=== PATIENT | female | born 1940 | race American Indian/Alaskan Native ===

== ENCOUNTER 2022-01-24 19:05 | Emergency (ER) | payer MEDICARE ==
--- NOTE | 2022-01-24 19:30 | Emergency Department Report ---
ED Fall HPI - General Chief Complaint: Fall Stated Complaint: GROUND LEVEL FALL/PAIN Time Seen by Provider: 01/24/22 19:26 Source: patient Mode of arrival: Stretcher Limitations: No Limitations - History of Present Illness Initial Comments: Patient is an 81-year-old female that presents emergency room with complaints of right shoulder pain and abdominal pain after a fall. Patient states that she tripped over a ledge that was on the floor and she fell against the wall with her right shoulder and then fell against the heater that was on the floor and hit her abdomen. Patient states she was not any pain prior to the fall. Patient states the right shoulder pain is a 6 out of 10. Patient states the abdominal pain is a 6 out of 10. Patient denies loss of consciousness. Patient denies hitting her head. Patient states the abdominal pain is better with rest and worse with palpation. Patient states the shoulder pain is better with rest and worse with movement. Patient states she is able to move all extremities. Patient denies other injury. Patient denies chest pain. Patient denies syncopal episode. Patient denies loss of consciousness. Patient denies shortness of breath. Patient denies recent travel. Patient denies recent international travel. Patient denies exposure to the novel coronavirus. Patient denies sick contacts. Patient denies fever and chills. Patient denies cough. Patient denies diarrhea. Patient denies coming in contact with anybody with symptoms of the novel coronavirus. Patient brought in by EMS. Report received from EMS. EMS states the patient has a history of mild dementia. MD Complaint: fall -: Sudden - Related Data Allergies Allergy/AdvReac Type Severity Reaction Status Date / Time No Known Allergies Allergy Unverified 01/24/22 19:47 ED Review of Systems ROS: Stated complaint: GROUND LEVEL FALL/PAIN Other details as noted in HPI Constitutional: denies: chills, fever Eyes: denies: eye pain, eye discharge, vision change ENT: denies: ear pain, throat pain Respiratory: denies: cough, shortness of breath, wheezing Cardiovascular: denies: chest pain, palpitations Endocrine: no symptoms reported Gastrointestinal: abdominal pain. denies: nausea, diarrhea Genitourinary: denies: urgency, dysuria, discharge Musculoskeletal: as per HPI. denies: back pain, joint swelling, arthralgia Skin: denies: rash, lesions Neurological: denies: headache, weakness, paresthesias Psychiatric: denies: anxiety, depression Hematological/Lymphatic: denies: easy bleeding, easy bruising ED Past Medical Hx - Past Medical History Previous Medical History?: Yes Hx Hypertension: Yes Hx Dementia: Yes - Surgical History Past Surgical History?: No - Family History Family history: no significant - Social History Smoking Status: Never Smoker Substance Use Type: None ED Physical Exam - General Limitations: No Limitations General appearance: alert, in no apparent distress - Head Head exam: Present: atraumatic, normocephalic - Eye Eye exam: Present: normal appearance - ENT ENT exam: Present: mucous membranes moist - Neck Neck exam: Present: normal inspection - Respiratory Respiratory exam: Present: normal lung sounds bilaterally. Absent: respiratory distress - Cardiovascular Cardiovascular Exam: Present: regular rate, normal rhythm. Absent: systolic murmur, diastolic murmur, rubs, gallop - GI/Abdominal GI/Abdominal exam: Present: soft, tenderness, normal bowel sounds - Extremities Exam Extremities exam: Present: normal inspection - Back Exam Back exam: Present: normal inspection - Neurological Exam Neurological exam: Present: alert, oriented X3 - Psychiatric Psychiatric exam: Present: normal affect, normal mood - Skin Skin exam: Present: warm, dry, intact, normal color. Absent: rash ED Course Vital Signs 01/24/22 19:06 Temperature 98 F Pulse Rate 65 Respiratory 18 Rate Blood Pressure 160/90 O2 Sat by Pulse 97 Oximetry - Reevaluation(s) Reevaluation #1: Patient denies pain in the abdomen. Patient states she still having shoulder pain. I discussed all results and clinical findings with patient. I discussed plan of care with patient. Patient agrees with plan of care. Patient is stable for discharge. Patient will be discharged home. Patient given discharge instructions. Patient voiced understanding of discharge instructions. 01/24/22 23:10 ED Medical Decision Making - Lab Data Result diagrams: 01/24/22 20:42 01/24/22 20:42 - Radiology Data Radiology results: report reviewed RIGHT SHOULDER, 3 VIEWS INDICATION / CLINICAL INFORMATION: pain./ fall. COMPARISON: None available. FINDINGS: No acute fracture. No dislocation. Moderate degenerative changes are present in the AC joint and glenohumeral joint. Visualized thoracic right ribs are intact. IMPRESSION: No fracture or dislocation. Moderate degenerative change. CT abdomen pelvis w con INDICATION / CLINICAL INFORMATION: abd holbrook. fall. hit abd. TECHNIQUE: Axial CT images were obtained through the abdomen and pelvis after IV contrast. All CT scans at this location are performed using CT dose reduction for ALARA by means of automated exp osure control. COMPARISON: None available. FINDINGS: LOWER CHEST: 1.5 cm nodule in the lingula with popcorn calcification, likely reflecting calcified granuloma. Prominent calcified left hilar lymph node. Small bland appearing pericardial effusion, nonspecific. LIVER: Right hepatic cyst. GALLBLADDER/BILIARY TREE: Gallbladder is distended with cholelithiasis. No significant gallbladder wall thickening. The common bile duct is mildly dilated for age, measuring 1 cm in diameter. This gradually tapers to the ampulla without discrete obstructing stone or mass. PANCREAS: No significant abnormality SPLEEN: No significant abnormality ADRENALS: No significant abnormality RIGHT KIDNEY / URETER: No significant abnormality LEFT KIDNEY / URETER: Left renal cyst. No acute findings. No hydronephrosis. URINARY BLADDER: No significant abnormality REPRODUCTIVE ORGANS: Lobulated fibroid uterus. STOMACH / BOWEL: Small bowel is normal in caliber. Moderate colonic stool with scattered colonic diverticula. No evidence of acute GI inflammation or obstruction. The appendix is normal in caliber. LYMPH NODES: No significant adenopathy. VASCULATURE: No significant abnormality. OTHER: No free air, free fluid, or focal fluid collection is identified. SKELETAL SYSTEM: No acute osseous findings. IMPRESSION: 1. No acute traumatic abnormality of the abdomen or pelvis. 2. Gallbladder is distended with cholelithiasis. No evidence of cholecystitis by CT. Mild common bile duct dilatation for age. This tapers to the ampulla without discrete obstructing stone or mass. Recommend correlation with laboratory values to exclude distal biliary obstruction. 3. Small bland-appearing pericardial effusion. 4. Other incidental findings as above. - Medical Decision Making Patient is an 81-year-old female that presents emergency room for a fall. Patient complained of right shoulder pain and abdominal pain. Patient's not improved while in the ER. Patient had a shoulder x-ray that was negative for acute findings. Patient had a abdominal CT and it was negative for acute findings. The abdominal CT showed dilation of the common bile duct and the radiologist recommend checking the labs for signs of obstruction. Patient's chemistry and LFTs were completely normal. Patient does not have any more pain on palpation in the right upper quadrant. Patient had labs done which were esse ntially unremarkable. Patient does not require any further emergency medical service. Patient not require any further inpatient service. Patient discharged home. Patient will need to follow-up with primary care and a general surgeon for the gallbladder findings. I discussed all results and clinical findings with patient. I discussed plan of care with patient. Patient agrees with plan of care. Patient is stable for discharge. Patient will be discharged home. Patient given discharge inst ructions. Patient voiced understanding of discharge instructions. - Differential Diagnosis Fall, abdominal pain, shoulder pain, fracture, contusion, Critical care attestation.: If time is entered above; I have spent that time in minutes in the direct care of this critically ill patient, excluding procedure time. ED Disposition Clinical Impression: Shoulder pain Qualifiers: Chronicity: acute Laterality: right Qualified Code(s): M25.511 - Pain in right shoulder Abdominal pain Qualifiers: Abdominal location: generalized Qualified Code(s): R10.84 - Generalized abdominal pain Fall Qualifiers: Encounter type: initial encounter Qualified Code(s): W19.XXXA - Unspecified fa ll, initial encounter Abdominal wall contusion Qualifiers: Encounter type: initial encounter Qualified Code(s): S30.1XXA - Contusion of abdominal wall, initial encounter Shoulder contusion Qualifiers: Encounter type: initial encounter Laterality: right Qualified Code(s): S40.011A - Contusion of right shoulder, initial encounter Cholelithiasis Qualifiers: Cholelithiasis location: gallbladder Cholecystitis presence: without cholecystitis Biliary obstruction: without biliary obstruction Qualified Code(s) : K80.20 - Calculus of gallbladder without cholecystitis without obstruction Disposition: 01 HOME / SELF CARE / HOMELESS Is pt being admited?: No Does the pt Need Aspirin: No Condition: Stable Instructions: Shoulder Pain, Cholelithiasis, Musculoskeletal Pain, Contusion, Abdominal Pain, Adult, [id number] Additional Instructions: Patient to follow-up with primary care in 2 to 3 days. Patient to follow-up with general surgery in 2 to 3 days. Patient to rest. Patient to increase water. Patient to take Tylenol or ibuprofen as needed for pain.. Patient to return to the ER if condition worsens, changes or new symptoms arise. Referrals: MARIELENA KELLY MD [Primary Care Provider] - 2-3 Days SUMAN SANTO DO [Staff Physician] - 2-3 Days Time of Disposition: 23:15
--- NOTE | 2022-01-24 20:17 | XRay Report ---
RIGHT SHOULDER, 3 VIEWS INDICATION / CLINICAL INFORMATION: pain./ fall. COMPARISON: None available. FINDINGS: No acute fracture. No dislocation. Moderate degenerative changes are present in the AC joint and richa ohumeral joint. Visualized thoracic right ribs are intact. IMPRESSION: No fracture or dislocation. Moderate degenerative change. Signer Name: Kayla Hong MD Signed: 01/24/2022 8:13 PM Workstation Name: [id number]
[2022-01-24 21:22] LABS: Alanine Aminotransferase 18 units/L (7-56); Albumin 3.9 g/dL (3.9-5); Blood Urea Nitrogen 12 mg/dL (7-17); Calcium 9.6 mg/dL (8.4-10.2); Hemolysis Index 1
[2022-01-24 21:28] LABS: BUN/Creatinine Ratio 17
[2022-01-24 21:33] LABS: Hematocrit 38.6 % (30.3-42.9); Hemoglobin 12.9 gm/dl (10.1-14.3); Mean Corpuscular HGB Conc 33 % (30-34); Mean Corpuscular Volume 84 fl (79-97); Platelet Count 217 K/mm3 (140-440); Red Cell Distribution Width 14.4 % (13.2-15.2)
--- NOTE | 2022-01-24 22:55 | Cat Scan Report ---
CT abdomen pelvis w con INDICATION / CLINICAL INFORMATION: abd holbrook. fall. hit abd. TECHNIQUE: Axial CT images were obtained through the abdomen and pelvis after IV contrast. All CT sc ans at this location are performed using CT dose reduction for ALARA by means of automated exposure c ontrol. COMPARISON: None available. FINDINGS: LOWER CHEST: 1.5 cm nodule in the lingula with popcorn calcification, likely reflecting calcified gra nuloma. Prominent calcified left hilar lymph node. Small bland appearing pericardial effusion, nonspe cific. LIVER: Right hepatic cyst. GALLBLADDER/BILIARY TREE: Gallbladder is distended with cholelithiasis. No significant gallbladder wa ll thickening. The common bile duct is mildly dilated for age, measuring 1 cm in diameter. This gradu ally tapers to the ampulla without discrete obstructing stone or mass. PANCREAS: No significant abnormality SPLEEN: No significant abnormality ADRENALS: No significant abnormality RIGHT KIDNEY / URETER: No significant abnormality LEFT KIDNEY / URETER: Left renal cyst. No acute findings. No hydronephrosis. URINARY BLADDER: No significant abnormality REPRODUCTIVE ORGANS: Lobulated fibroid uterus. STOMACH / BOWEL: Small bowel is normal in caliber. Moderate colonic stool with scattered colonic dive rticula. No evidence of acute GI inflammation or obstruction. The appendix is normal in caliber. LYMPH NODES: No significant adenopathy. VASCULATURE: No significant abnormality. OTHER: No free air, free fluid, or focal fluid collection is identified. SKELETAL SYSTEM: No acute osseous findings. IMPRESSION: 1. No acute traumatic abnormality of the abdomen or pelvis. 2. Gallbladder is distended with cholelithiasis. No evidence of cholecystitis by CT. Mild common bile duct dilatation for age. This tapers to the ampulla without discrete obstructing stone or mass. Jarrett mmend correlation with laboratory values to exclude distal biliary obstruction. 3. Small bland-appearing pericardial effusion. 4. Other incidental findings as above. Signer Name: Henry Alvarez MD Signed: 01/24/2022 10:51 PM Workstation Name: [id number]
[2022-01-25 00:12] VITALS: BP 142/76
== END 2022-01-25 00:12 | disposition home or self-care (01) ==
LOC: ED 19:05
DX: S40.011A Contusion of right shoulder, initial encounter (principal); S30.1XXA Contusion of abdominal wall, initial encounter; K80.20 Calculus of gallbladder without cholecystitis without obstruction; I10 Essential (primary) hypertension; F03.90 Unspecified dementia, unspecified severity, without behavioral disturbance, psychotic disturbance, mood disturbance, and anxiety; W19.XXXA Unspecified fall, initial encounter; Y93.89 Activity, other specified; Y92.89 Other specified places as the place of occurrence of the external cause; Y99.8 Other external cause status
CPT/HCPCS: 36415; 73030; 74177; 80053; 85027; 99284; Q9967

== ENCOUNTER 2022-01-25 21:26 | Emergency (ER) | payer MEDICARE ==
--- NOTE | 2022-01-25 21:49 | Emergency Department Report ---
ED Fall HPI - General Stated Complaint: FALL/HEAD LACERATION Time Seen by Provider: 01/25/22 21:41 Source: patient, EMS Mode of arrival: Stretcher Limitations: No Limitations - History of Present Illness Initial Comments: Patient is a 89-year-old female with history of dementia brought in by EMS from home after ground-level fall witnessed by caregiver. Struck her head while fa lling with small abrasion to the right side of her head. She denies LOC and states he did not want to come however daughter insisted. She was reportedly seen here yesterday for the same. - Related Data Allergies Allergy/AdvReac Type Severity Reaction Status Date / Time No Known Allergies Allergy Unverified 01/24/22 19:47 ED Review of Systems ROS: Stated complaint: FALL/HEAD LACERATION Other details as noted in HPI Comment: All other systems reviewed and negative Constitutional: denies: chills, fever Respiratory: denies: cough, shortness of breath, wheezing Cardiovascular: denies: chest pain, palpitations Gastrointestinal: denies: abdominal pain, nausea, diarrhea Musculoskeletal: denies: back pain, joint swelling, arthralgia Skin: denies: rash, lesions Neurological: denies: headache, weakness, paresthesias Psychiatric: denies: anxiety, depression ED Past Medical Hx - Past Medical History Hx Hypertension: Yes Hx Seizures: Yes Hx Dementia: Yes Additional medical history: High cholesterol - Social History Smoking Status: Never Smoker Substance Use Type: None ED Physical Exam - General General appearance: alert, in no apparent distress - Head Head exam: Present: normocephalic, other (Small abrasion/ecchymoses to right parietal scalp) - Eye Eye exam: Present: normal appearance - Neck Neck exam: Present: normal inspection. Absent: tenderness - Respiratory Respiratory exam: Present: normal lung sounds bilaterally. Absent: respiratory distress - Cardiovascular Cardiovascular Exam: Present: regular rate, normal rhythm, normal heart sounds - GI/Abdominal GI/Abdominal exam: Present: soft. Absent: distended, tenderness - Rectal Rectal exam: Present: deferred - Extremities Exam Extremities exam: Present: normal inspection, full ROM, other (Pelvis nontender). Absent: tenderness - Back Exam Back exam: Present: normal inspection. Absent: tenderness, paraspinal tenderness, vertebral tenderness - Neurological Exam Neurological exam: Present: alert, other (Oriented to person and place) - Psychiatric Psychiatric exam: Present: normal affect, normal mood - Skin Skin exam: Present: warm, dry, intact, normal color ED Course Vital Signs 01/25/22 21:27 Temperature 97.2 F L Pulse Rate 74 Respiratory 18 Rate Blood Pressure 162/78 O2 Sat by Pulse 99 Oximetry ED Medical Decision Making - Medical Decision Making CT head shows no acute intracranial abnormality. Vital signs remained stable. Patient stable for discharge back home. Critical care attestation.: If time is entered above; I have spent that time in minutes in the direct care of this critically ill patient, excluding procedure time. ED Disposition Clinical Impression: Fall from standing, Minor head injury without loss of consciousness Disposition: HOME / SELF CARE / HOMELESS Is pt being admited?: No Condition: Stable Instructions: Fall Prevention in the Home, Adult
--- NOTE | 2022-01-25 22:27 | Cat Scan Report ---
CT HEAD WITHOUT CONTRAST INDICATION / CLINICAL INFORMATION: Fall/head injury. TECHNIQUE: All CT scans at this location are performed using CT dose reduction for ALARA by means of automated exposure control. COMPARISON: None available. FINDINGS: BRAIN PARENCHYMA: No acute intracranial hemorrhage. No evidence of recent infarct. No mass effect or midline shift. White matter chronic small vessel ischemic changes. Empty sella turcica. VENTRICULAR SYSTEM/EXTRA-AXIAL SPACES: Age-related cerebral atrophy. No extra-axial fluid collection. ORBITS: [place] lenses are absent. No acute findings. SKELETAL SYSTEM/SOFT TISSUES: Normal bones and soft tissues. PARANASAL SINUSES/MASTOID AIR CELLS: No significant abnormality. ADDITIONAL FINDINGS: None. IMPRESSION: 1. No acute intracranial abnormality. Signer Name: Henry Alvarez MD Signed: 01/25/2022 10:23 PM Workstation Name: [id number]
[2022-01-26 09:35] VITALS: BP 157/82
== END 2022-01-26 09:33 | disposition home or self-care (01) ==
LOC: ED 21:26
DX: S09.90XA Unspecified injury of head, initial encounter (principal); W18.30XA Fall on same level, unspecified, initial encounter; Y93.89 Activity, other specified; Y92.89 Other specified places as the place of occurrence of the external cause; Y99.8 Other external cause status; I10 Essential (primary) hypertension
CPT/HCPCS: 70450; 99284

== ENCOUNTER 2022-01-30 17:57 | Emergency (ER) | payer MEDICARE ==
[2022-01-30] MEDS ORDERED: SODIUM CHLORIDE 0.9% 1000 ML 1,000 ML IV ONE (18:43)
[2022-01-30] MEDS ORDERED: ONDANSETRON 4 MG/2 ML INJ IV ONE (18:48)
[2022-01-30] MEDS ORDERED: FAMOTIDINE 20 MG/2 ML INJ IV ONE (19:03)
--- NOTE | 2022-01-30 19:03 | Emergency Department Report ---
ED Abdominal Pain HPI - General Chief Complaint: Abdominal Pain Stated Complaint: ABDOMINAL PAIN Time Seen by Provider: 01/30/22 18:47 Source: EMS Mode of arrival: Stretcher Limitations: Physical Limitation - History of Present Illness Initial Comments: Patient is a 81-year-old female with past medical history notable for hypertension and elevated cholesterol who presents to the emergency department with complaints of abdominal pain. Patient states that abdominal pain happened earlier today. She denies any history of diabetes but does note that she has not eaten on today. She does not associate her pain with eating. She denies any recent fevers chills, coughing. She has had nausea but states she has not vomited. She denies any diarrhea constipation. She denies any chest pain or shortness of breath at this time. Severity scale (0 -10): 0 - Related Data Allergies Allergy/AdvReac Type Severity Reaction Status Date / Time No Known Allergies Allergy Verified 01/30/22 18:21 ED Review of Systems ROS: Stated complaint: ABDOMINAL PAIN Other details as noted in HPI Constitutional: denies: chills, fever Eyes: denies: eye pain, eye discharge, vision change ENT: denies: ear pain, throat pain Respiratory: denies: cough, shortness of breath, wheezing Cardiovascular: denies: chest pain, palpitations Endocrine: no symptoms reported Gastrointestinal: abdominal pain, nausea. denies: vomiting, diarrhea Genitourinary: denies: urgency, dysuria, discharge Musculoskeletal: denies: back pain, joint swelling, arthralgia Skin: denies: rash, lesions Neurological: denies: headache, weakness, paresthesias Psychiatric: denies: anxiety, depression Hematological/Lymphatic: denies: easy bleeding, easy bruising ED Past Medical Hx - Past Medical History Previous Medical History?: Yes Hx Hypertension: Yes Hx Seizures: Yes Hx Dementia: Yes Additional medical history: High cholesterol - Social History Smoking Status: Never Smoker Substance Use Type: None ED Physical Exam - General Limitations: Physical Limitation General appearance: alert, in no apparent distress - Head Head exam: Present: atraumatic, normocephalic - Eye Eye exam: Present: normal appearance - ENT ENT exam: Present: mucous membranes moist - Neck Neck exam: Present: normal inspection - Respiratory Respiratory exam: Present: normal lung sounds bilaterally. Absent: respiratory distress - Cardiovascular Cardiovascular Exam: Present: regular rate, normal rhythm. Absent: systolic murmur, diastolic murmur, rubs, gallop - GI/Abdominal GI/Abdominal exam: Present: soft, tenderness (epigastric and LLQ), normal bowel sounds - Rectal Rectal exam: Present: deferred - Extremities Exam Extremities exam: Present: normal inspection - Back Exam Back exam: Present: normal inspection - Neurological Exam Neurological exam: Present: alert, oriented X3 - Psychiatric Psychiatric exam: Present: normal affect, normal mood - Skin Skin exam: Present: warm, dry, intact, normal color. Absent: rash ED Course Vital Signs 01/30/22 01/30/22 01/30/22 18:19 18:32 18:33 Temperature 97.7 F 98.2 F Pulse Rate 90 68 Respiratory 16 16 Rate Blood Pressure 168/88 154/74 [Left] O2 Sat by Pulse 98 95 97 Oximetry ED Medical Decision Making - Lab Data Result diagrams: 01/30/22 18:47 01/30/22 18:47 - EKG Data 01/31/22 00:01 EKG was performed at 2356. EKG is notable for sinus rhythm at a rate of 55. There is a prolonged QTC at 522. There is T wave inversions in the anterior leads. - Radiology Data Radiology results: report reviewed, image reviewed - Medical Decision Making Patient is a 81-year-old female here with complaint of abdominal pain. Differential includes small bowel obstruction, gastritis, urinary tract infection, ACS. Plan for EKG, troponin, chest x-ray CT scan of the abdomen pelvis urinalysis, basic labs. Pending work-up patient may require admission versus discharge with close outpatient follow-up. Critical care attestation.: If time is entered above; I have spent that time in minutes in the direct care of this critically ill patient, excluding procedure time. ED Disposition Clinical Impression: Abdominal pain, Lung nodule, Dizziness Is pt being admited?: No Does the pt Need Aspirin: No Condition: Stable Instructions: Incidental Abnormal Radiological Finding, Pulmonary Nodule, Abdominal Pain (ED) Additional Instructions: You have a pulmonary nodule. You should follow-up with your primary care doctor and have a CT scan of your chest. You also have findings on your CAT scan that will require you to follow-up with a mechanical energy engineer. Please call one of the numbers located on your paperwork. Referrals: PRIMARY CARE, [Primary Care Provider] - 3-5 Days FAHAD CRUZ MD [Referring] - 3-5 Days (For primary care) TIM BELTRAN MD [Staff Physician] - 3-5 Days (For your GI problem, abdominal pain with abnormality on CT) Time of Disposition: 23:15
[2022-01-30 19:12] LABS: Basophils # (Auto) 0.1 K/mm3 (0.0-0.1); Basophils % (Auto) 1.3 % (0.0-1.8); Eosinophils # (Auto) 0.2 K/mm3 (0.0-0.4); Eosinophils % (Auto) 2.8 % (0.0-4.3); Hematocrit 38.3 % (30.3-42.9); Hemoglobin 12.4 gm/dl (10.1-14.3); Lymphocytes # (Auto) 2.2 K/mm3 (1.2-5.4); Lymphocytes % (Auto) 34.1 % (13.4-35.0); Mean Corpuscular HGB Conc 33 % (30-34); Mean Corpuscular Volume 85 fl (79-97); Monocytes # (Auto) 0.6 K/mm3 (0.0-0.8); Monocytes % (Auto) 9.7 % (0.0-7.3); Platelet Count 207 K/mm3 (140-440); Red Blood Count 4.53 M/mm3 (3.65-5.03); Red Cell Distribution Width 14.8 % (13.2-15.2)
[2022-01-30 19:20] LABS: INR 0.95 (0.87-1.13)
[2022-01-30 19:34] LABS: Alanine Aminotransferase 14 units/L (7-56); Albumin 3.8 g/dL (3.9-5); Blood Urea Nitrogen 9 mg/dL (7-17); Calcium 9.2 mg/dL (8.4-10.2); Hemolysis Index 4
[2022-01-30 19:40] LABS: BUN/Creatinine Ratio 15; Bilirubin,Direct < 0.2 mg/dL (0-0.2)
--- NOTE | 2022-01-30 20:30 | XRay Report ---
CHEST 1 VIEW 01/30/2022 6:17 PM INDICATION / CLINICAL INFORMATION: abd pain. COMPARISON: None available. FINDINGS: SUPPORT DEVICES: None. HEART / MEDIASTINUM: No significant abnormality. LUNGS / PLEURA: There is a 1.4 cm nodular density involving the left lower lung. No focal consolidati on. No pneumothorax. ADDITIONAL FINDINGS: No significant additional findings. IMPRESSION: 1. No acute findings. 2. There is a 1.4 cm nodular density involving the left lower lobe. A chest CT is recommended for fur ther evaluation. Signer Name: Shashank Stubbs DO Signed: 01/30/2022 8:25 PM Workstation Name: [id number]
--- NOTE | 2022-01-30 22:55 | Cat Scan Report ---
CT HEAD WITHOUT CONTRAST INDICATION / CLINICAL INFORMATION: possible altered mental status. TECHNIQUE: All CT scans at this location are performed using CT dose reduction for ALARA by means of automated exposure control. COMPARISON: 01/25/2022 FINDINGS: BRAIN PARENCHYMA: No acute intracranial hemorrhage. No evidence of recent infarct. No mass effect or midline shift. Chronic small vessel ischemic changes. Empty sella turcica. VENTRICULAR SYSTEM/EXTRA-AXIAL SPACES: Age-related cerebral atrophy. No extra-axial fluid collection. ORBITS: No acute findings. [employer] lenses are absent. SKELETAL SYSTEM/SOFT TISSUES: Normal bones and soft tissues. PARANASAL SINUSES/MASTOID AIR CELLS: No significant abnormality. ADDITIONAL FINDINGS: None. IMPRESSION: 1. No acute intracranial abnormality. Signer Name: Henry Alvarez MD Signed: 01/30/2022 10:50 PM Workstation Name: [id number]
--- NOTE | 2022-01-30 22:59 | Cat Scan Report ---
CT abdomen pelvis w con INDICATION / CLINICAL INFORMATION: Abdominal Pain. TECHNIQUE: Axial CT images were obtained through the abdomen and pelvis after 100 cc of Omnipaque [address] scans at this location are performed using CT dose reduction for ALARA by means of automated exposure control. COMPARISON: CT from 01/24/2022 FINDINGS: LOWER CHEST: Stable small pericardial effusion. LIVER: Right hepatic cyst. GALLBLADDER/BILIARY TREE: Gallbladder remains distended with cholelithiasis. No significant gallbladd er wall thickening. The common bile duct remains mildly dilated, measuring 1 cm. This gradually taper s to the ampulla without discrete obstructing stone or mass. PANCREAS: No significant abnormality SPLEEN: No significant abnormality ADRENALS: No significant abnormality RIGHT KIDNEY / URETER: No significant abnormality LEFT KIDNEY / URETER: Left renal cyst. No acute findings. No hydronephrosis. URINARY BLADDER: No significant abnormality REPRODUCTIVE ORGANS: Lobulated fibroid uterus, unchanged. STOMACH / BOWEL: Small bowel is normal in caliber. Moderate colonic stool with scattered colonic dive rticula. No evidence of acute GI inflammation or obstruction. The appendix is normal in caliber. LYMPH NODES: No significant adenopathy. VASCULATURE: No significant abnormality. OTHER: No free air, free fluid, or focal fluid collection is identified. SKELETAL SYSTEM: Degenerative changes of the spine. No acute osseous findings. IMPRESSION: 1. Gallbladder remains distended with cholelithiasis. Mild common bile duct dilatation is unchanged. This tapers to the ampulla without discrete obstructing stone or mass. Recommend correlation with lab oratory values to exclude distal biliary obstruction. 2. Stable small pericardial effusion. 3. No significant interval change from CT from 01/24/2022. Signer Name: Henry Alvarez MD Signed: 01/30/2022 10:55 PM Workstation Name: [id number]
[2022-01-30] MEDS ORDERED: POTASSIUM CHLORIDE ER 20 MEQ TAB PO ONE (23:59)
[2022-01-31 02:06] LABS: Bacteria,Urine 2+ /HPF (Negative); Mucus,Urine FEW /HPF
[2022-01-31 02:10] LABS: Bilirubin,Urine Negative (Negative); Color,Urine Colorless (Yellow)
[2022-01-31 02:11] LABS: Blood,Urine Trace (Negative); PH,Urine 6.5 (5.0-7.0); Protein,Urine <15 mg/dL mg/dL (Negative)
[2022-01-31 02:47] VITALS: BP 139/79
--- NOTE | 2022-01-31 17:53 | Electrocardiograph Report ---
[facility] Test Date: 2022-01-30 Test Time: 23:56:49 Pat Name: JOAQUIM SHIRLEY Department: Room: Gender: F Wide Load Escort: KARSTEN Kim : 1940 Requested By: JOY FRANKLIN Order Number: [id number] Reading MD: Giovanni Hensley Measurements Intervals [place] Rate: 65 P: 53 WV: 156 QRS: -11 QRSD: 92 T: 243 QT: 503 QTc: 522 Interpretive Statements Sinus rhythm T wave inversions, consider anterior ischemia Prolonged QT interval No previous ECG available for comparison Electronically Signed On 01-31-2022 17:53:09 EDT by Giovanni Hensley
== END 2022-01-31 03:48 | disposition home or self-care (01) ==
LOC: ED 17:57
DX: R10.9 Unspecified abdominal pain (principal); R91.1 Solitary pulmonary nodule; R42 Dizziness and giddiness; I10 Essential (primary) hypertension; R56.9 Unspecified convulsions; F03.90 Unspecified dementia, unspecified severity, without behavioral disturbance, psychotic disturbance, mood disturbance, and anxiety
CPT/HCPCS: 36415; 70450; 71045; 74177; 80048; 80076; 81001; 83690; 83735; 84484; 85025; 85610; 93005; 96361; 96374; 96375; 99285; J2405; J3490; J7030; Q9967

== ENCOUNTER 2022-02-04 03:53 | Emergency (ER) | payer MEDICARE ==
[2022-02-04 08:23] VITALS: BP 149/66
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
[2022-02-04 09:33] LABS: Basophils # (Auto) 0.1 K/mm3 (0.0-0.1); Basophils % (Auto) 1.5 % (0.0-1.8); Eosinophils # (Auto) 0.2 K/mm3 (0.0-0.4); Hematocrit 38.7 % (30.3-42.9); Hemoglobin 12.8 gm/dl (10.1-14.3); Lymphocytes # (Auto) 2.4 K/mm3 (1.2-5.4); Mean Corpuscular HGB Conc 33 % (30-34); Mean Corpuscular Volume 84 fl (79-97); Monocytes # (Auto) 0.6 K/mm3 (0.0-0.8); Monocytes % (Auto) 9.7 % (0.0-7.3); Platelet Count 201 K/mm3 (140-440); Red Blood Count 4.61 M/mm3 (3.65-5.03); Red Cell Distribution Width 14.3 % (13.2-15.2)
[2022-02-04 09:50] LABS: Blood Urea Nitrogen 11 mg/dL (7-17); Calcium 9.1 mg/dL (8.4-10.2); Hemolysis Index 0
[2022-02-04 09:55] LABS: BUN/Creatinine Ratio 22
[2022-02-04] MEDS ORDERED: SODIUM CHLORIDE 0.9% 1000 ML 1,000 ML ONE (13:12)
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
[2022-02-04 17:16] LABS: Bilirubin,Urine NEG (Negative); Blood,Urine NEG (Negative); Color,Urine Amber (Yellow)
[2022-02-04 17:23] LABS: Mucus,Urine 3+ /HPF
[2022-02-04 18:26] LABS: Amphetamine Screen,Urine PRESUMPTIVE NEGATIVE; Benzodiazepines Screen,Urine PRESUMPTIVE NEGATIVE; Cannabinoid Screen,Urine PRESUMPTIVE NEGATIVE; Cocaine Screen,Urine PRESUMPTIVE NEGATIVE; Methadone Screen,Urine PRESUMPTIVE NEGATIVE; Opiate Screen,Urine PRESUMPTIVE NEGATIVE
[2022-02-04] MEDS ORDERED: levETIRAcetam 500 MG TAB PO SCH (22:00)
[2022-02-04] MEDS ORDERED: DONEPEZIL 10 MG TAB PO SCH (22:00)
--- NOTE | 2022-02-05 08:59 | Electrocardiograph Report ---
[facility] Test Date: 2022-02-04 Test Time: 08:30:46 Pat Name: JOAQUIM SHIRLEY Department: Room: Gender: F [employer] Operator: [id number] : 1940 Requested By: PREET WILLARD Order Number: [id number] Reading MD: Jose Metz Measurements Intervals [place] Rate: 66 P: 65 [place]: 151 QRS: -19 QRSD: 92 T: 223 QT: 492 QTc: 517 Interpretive Statements Sinus rhythm Abnrm T, consider ischemia, anterolateral lds Prolonged QT interval Compared to ECG 01/30/2022 23:56:49 No significant changes Electronically Signed On 02-05-2022 8:58:51 EDT by Jose Metz
[2022-02-05] MEDS ORDERED: risperiDONE 0.25 MG TAB PO SCH (10:00)
== END 2022-02-05 01:33 ==
LOC: ED 03:53
DX: R45.850 Homicidal ideations (principal); F03.90 Unspecified dementia, unspecified severity, without behavioral disturbance, psychotic disturbance, mood disturbance, and anxiety; I10 Essential (primary) hypertension
CPT/HCPCS: 36415; 80048; 80307; 81001; 85025; 93005; 99285; J7030; 80320; G0480